=== PATIENT | female | born 1940 | race Hispanic/Latino ===

== ENCOUNTER 2016-10-01 08:48 | Day surgery (SDC) | payer OTHER ==
[2016-09-27 14:02] VITALS: BMI 28.1
[2016-10-01 09:22] LABS: HEMATOCRIT 40.1 % (36.0-48.0); MEAN CELL VOLUME 88.3 fL (80.0-105.0); MEAN CORPUSCULAR HEMOGLOBIN 30.2 pg (25.0-35.0); MEAN CORPUSCULAR HGB CONC 34.2 g/dl (31.0-37.0); MEAN PLATELET VOLUME 9.8 fl (7.0-11.0); RED CELL DISTRIBUTION WIDTH 13.6 % (11.5-14.5)
[2016-10-01 09:33] LABS: INR 0.96 (0.93-1.08); PARTIAL THROMBOPLASTIN TIME 28.3 Seconds (23.7-30.8)
[2016-10-01 09:57] LABS: BLOOD UREA NITROGEN 27 mg/dL (7-21); CARBON DIOXIDE 27 mmol/L (21-33); CHLORIDE 102 mmol/L (98-107); GFR AFRICAN-AMERICAN > 60; GLUCOSE,RANDOM 87 mg/dL (70-110); POTASSIUM 4.4 mmol/L (3.6-5.0); SODIUM 141 mmol/L (132-148)
--- NOTE | 2016-10-01 10:20 | CP.SDSHP ---
Same Day Surgery H & P - History Proposed Procedure: Ultrasound guided Thyroid nodule biopsy Pre-Op Diagnosis: Thyroid nodule - Previous Medical/Surgical History Cardiac: Hypertension Endocrine/Metabolic: Thyroid Disease (Recent increase in size of thyroid nodule noted on ultrasound.) Misc: Other (Arthritis,Gerd,Raynauds,Diverticulitis,Duodenal ulcer,Hiatal hernia ,H Pylori(treated)) Pain: 0. No Pain Previous Surgical History: Cholecystectomy. Bilateral cataract surgery. Growth from R eye removed. Tonsillectomy - Allergies Allergies: Allergies No Known Allergies Allergy (Verified 09/27/16 14:01) - Physical Exam General Appearance: Well nourished female Vital Signs: Vital Signs 10/01/16 09:30 Temperature 97.8 F Pulse Rate 73 Respiratory 20 Rate Blood Pressure 139/54 L O2 Sat by Pulse 98 Oximetry Mental Status: Alert & Oriented x3 Neuro: WNL Heart: WNL Lungs: WNL GI: WNL - {Optional Preform as Required} Abdomen: WNL - Impression Impression: Thyroid nodules - Date & Time Date: 10/01/16 Time: 10:19 Short Stay Discharge - Short Stay Discharge Admitting Diagnosis/Reason for Visit: THYROID E04.9 Disposition: HOME/ ROUTINE Referrals: Anatoly Loza MD [Primary Care Provider] -
[2016-10-01] MEDS ORDERED: Midazolam 2 MG/2 ML VIAL ONE (11:54)
[2016-10-01] MEDS ORDERED: Oxycodone/Acetaminophen 5/325 mg Tab PO PRN (12:14)
[2016-10-01] MEDS ORDERED: Sodium Chloride 0.45% 1,000 ML IV SCH (12:15)
[2016-10-01 13:22] VITALS: TEMP 97.9
[2016-10-01 13:34] VITALS: RESP 18
--- NOTE | 2016-10-01 14:36 | US ---
PROCEDURE: Ultrasound-guided right thyroid fine needle aspiration biopsy. CLINICAL HISTORY: History hyperthyroidism. Multiple thyroid nodules. Enlarging 2 cm right thyroid nodule. Evaluate for malignancy. PHYSICIAN(S): Trevor Olson M.D. TECHNIQUE: The relative risks and indications for the procedure were explained to the patient and consent obtained. The patient was placed supine on the stretcher with the neck extended and preliminary sonography of the thyroid performed. This reveal heterogeneous parenchyma with a dominant 2.1 cm right lower pole nodule.. Smaller nodules are seen bilaterally. The neck was prepped and draped in the usual sterile fashion. Conscious sedation and monitoring were provided throughout the procedure by a nurse. 1% Xylocaine was used to anesthetize the skin and soft tissues at the access site. Three passes with a 22-gauge needle were performed under ultrasound guidance for fine needle aspiration of the 2.1 cm hypoechoic nodule in the right thyroid. The slides were reviewed by pathology and deemed adequate. The patient tolerated the procedure well. IMPRESSION: 1. Ultrasound guided fine needle aspiration of a 2.1 cm hypoechoicnodule in the right thyroid.
[2016-10-01 14:59] VITALS: BP 120/60; PULSE 61; O2SAT 98
== END 2016-10-01 14:00 | disposition home or self-care (01) ==
LOC: SDS 08:48
PROVIDERS: ATTEND Radiology Vascular & Interventional Radiology
DX: E04.2 Nontoxic multinodular goiter (principal); E05.90 Thyrotoxicosis, unspecified without thyrotoxic crisis or storm; I10 Essential (primary) hypertension; I73.00 Raynaud's syndrome without gangrene; K21.9 Gastro-esophageal reflux disease without esophagitis; K44.9 Diaphragmatic hernia without obstruction or gangrene; M19.90 Unspecified osteoarthritis, unspecified site; Z90.49 Acquired absence of other specified parts of digestive tract
CPT/HCPCS: 10022; 36415; 80048; 85027; 85610; 85730; 88173; 88305; J2250; J2405; J3010; J7030